=== PATIENT | female | born 1980 | race Caucasian/White ===

== ENCOUNTER 2018-08-03 19:15 | Inpatient (IN) | payer OTHER, MEDICAID ==
[~2018-08-03] VITALS: Ht 180.3 cm; Wt 70.3 kg
[2018-08-03 19:24] VITALS: BP_SYST 124
[2018-08-03] MEDS ORDERED: VITD2000 PO (19:43)
[2018-08-03] MEDS ORDERED: GABA-531 PO (19:43)
[2018-08-03] MEDS ORDERED: LEVE500T8 PO (19:43)
[2018-08-03] MEDS ORDERED: CHOL500051 PO (19:43)
[2018-08-03] MEDS ORDERED: ESCI10TA PO (19:47)
[2018-08-03] MEDS ORDERED: SYN50 PO (19:47)
[2018-08-03] MEDS ORDERED: SIMV20TA6 PO (19:47)
[2018-08-03] MEDS ORDERED: NAPR-688 PO (19:59)
[2018-08-03] MEDS ORDERED: LOM2.5 PO (19:59)
[2018-08-03] MEDS ORDERED: BACL10TA PO (19:59)
[2018-08-03] MEDS ORDERED: ACET-2634 PO (19:59)
[2018-08-03] MEDS ORDERED: MORPHINE 4 MG/ML INJ. SYRINGE IVP ONE ×2 (20:15→22:00)
[2018-08-03 20:33] LABS: BASOPHILS # (AUTO) 0.1 K/uL (0.0-0.2); BASOPHILS % (AUTO) 0.4 % (0.0-2.0); EOSINOPHILS # (AUTO) 0.1 K/uL (0.0-0.4); EOSINOPHILS % (AUTO) 0.4 % (0.0-4.0); HEMATOCRIT 41.6 % (36-48); HEMOGLOBIN 14.1 g/dL (12.0-16.0); LYMPHOCYTES # (AUTO) 1.8 K/uL (1.0-5.5); MEAN CORPUSCULAR HEMOGLOBIN 30 pg (27-31); MEAN CORPUSCULAR HGB CONC 34 % (32-36); MEAN CORPUSCULAR VOLUME 88 fL (79.0-98.0); MONOCYTES # (AUTO) 0.8 K/uL (0.0-1.0); MONOCYTES % (AUTO) 5.7 % (1.7-9.3); NEUTROPHILS % (AUTO) 80.5 % (40.0-70.0); PLATELET COUNT (AUTO) 264 K/uL (130-430); RED BLOOD CELL COUNT(AUTO) 4.73 MIL/uL (4.2-6.2); RED CELL DISTRIBUTION WIDTH 13.4 % (9.0-15.0); WHITE BLOOD COUNT (AUTO) 13.6 K/uL (4.8-10.8)
[2018-08-03 20:40] LABS: CALCIUM 9.1 mg/dL (8.4-11.0); CREATININE 0.69 mg/dL (0.55-1.30); POTASSIUM 3.4 mmol/L (3.5-5.1)
[2018-08-03 20:44] LABS: ALBUMIN 4.1 g/dL (3.4-4.8); TOTAL BILIRUBIN 0.4 mg/dL (0.0-1.0)
[2018-08-04] VITALS (7 sets, daily range): BP systolic 107–133
[2018-08-04] MEDS ORDERED: HYDROmorphone 2 MG/ML VIAL IVP ONE (02:00)
[2018-08-04] MEDS ORDERED: LORazepam 2 MG/ML VIAL IVP ONE (02:00)
[2018-08-04] MEDS ORDERED: ACETAMINOPHEN 325 MG TABLET PO PRN (06:30)
[2018-08-04] MEDS ORDERED: ALBUTEROL SULFATE 0.083% 2.5 MG/3 ML VIAL.NEB INH PRN (06:30)
[2018-08-04] MEDS: NACL 0.9% 1,000 ML IV SCH (06:54)
[2018-08-04] MEDS ORDERED: KCL 20 mEq in 100 mL (PREMIX) 100 ML IV ONE (08:00)
[2018-08-04 08:03] LABS: BASOPHILS % (AUTO) 0.4 % (0.0-2.0); EOSINOPHILS % (AUTO) 0.3 % (0.0-4.0); HEMATOCRIT 38.5 % (36-48); LYMPHOCYTES # (AUTO) 2.2 K/uL (1.0-5.5); LYMPHOCYTES % (AUTO) 24.6 % (20.5-51.5); MEAN CORPUSCULAR HEMOGLOBIN 30 pg (27-31); MEAN CORPUSCULAR HGB CONC 34 % (32-36); MEAN CORPUSCULAR VOLUME 89 fL (79.0-98.0); MONOCYTES # (AUTO) 0.8 K/uL (0.0-1.0); MONOCYTES % (AUTO) 8.6 % (1.7-9.3); NEUTROPHILS % (AUTO) 66.1 % (40.0-70.0); PLATELET COUNT (AUTO) 240 K/uL (130-430); RED BLOOD CELL COUNT(AUTO) 4.33 MIL/uL (4.2-6.2); RED CELL DISTRIBUTION WIDTH 13.4 % (9.0-15.0); WHITE BLOOD COUNT (AUTO) 9.1 K/uL (4.8-10.8)
[2018-08-04 08:15] LABS: CALCIUM 8.7 mg/dL (8.4-11.0); CREATININE 0.59 mg/dL (0.55-1.30); POTASSIUM 3.4 mmol/L (3.5-5.1)
[2018-08-04 08:22] LABS: ALBUMIN 3.5 g/dL (3.4-4.8); TOTAL BILIRUBIN 0.4 mg/dL (0.0-1.0)
[2018-08-04] MEDS ORDERED: POTASSIUM CHLORIDE 20 MEQ in NS 250 ML IV ONE (08:30)
[2018-08-04] MEDS ORDERED: POTASSIUM CHLORIDE 20 MEQ TAB.PRT.SR PO ONE (09:30)
[2018-08-04] MEDS: MORPHINE 4 MG/ML INJ. SYRINGE IVP PRN ×2 (12:00→19:44)
[2018-08-05] MEDS: NACL 0.9% 1,000 ML IV SCH (05:53)
[2018-08-05] MEDS: MORPHINE 4 MG/ML INJ. SYRINGE IVP PRN ×3 (05:54→17:34)
[2018-08-05 06:09] LABS: BASOPHILS % (AUTO) 0.3 % (0.0-2.0); EOSINOPHILS # (AUTO) 0.1 K/uL (0.0-0.4); EOSINOPHILS % (AUTO) 0.7 % (0.0-4.0); HEMOGLOBIN 13.3 g/dL (12.0-16.0); LYMPHOCYTES # (AUTO) 1.2 K/uL (1.0-5.5); MEAN CORPUSCULAR HEMOGLOBIN 31 pg (27-31); MEAN CORPUSCULAR HGB CONC 34 % (32-36); MEAN CORPUSCULAR VOLUME 90 fL (79.0-98.0); MONOCYTES # (AUTO) 0.5 K/uL (0.0-1.0); MONOCYTES % (AUTO) 6.2 % (1.7-9.3); NEUTROPHILS # (AUTO) 6.3 K/uL (1.8-7.7); NEUTROPHILS % (AUTO) 77.8 % (40.0-70.0); PLATELET COUNT (AUTO) 241 K/uL (130-430); RED BLOOD CELL COUNT(AUTO) 4.35 MIL/uL (4.2-6.2); RED CELL DISTRIBUTION WIDTH 13.9 % (9.0-15.0)
[2018-08-05 06:48] LABS: ALBUMIN 3.4 g/dL (3.4-4.8); CALCIUM 8.7 mg/dL (8.4-11.0); CREATININE 0.49 mg/dL (0.55-1.30); POTASSIUM 3.9 mmol/L (3.5-5.1); TOTAL BILIRUBIN 0.6 mg/dL (0.0-1.0)
[2018-08-05 08:14] VITALS: BP_SYST 114
[2018-08-05 11:25] VITALS: BP_SYST 104
[2018-08-05] MEDS ORDERED: ACETAMINOPHEN 500 MG TABLET PO SCH (12:30)
[2018-08-05] MEDS ORDERED: GABAPENTIN 300 MG CAPSULE PO SCH (15:00)
[2018-08-05] MEDS ORDERED: DIPHENOXYLATE HCL/ATROP SULF 2.5 MG TAB PO SCH (15:00)
[2018-08-05 15:48] VITALS: BP_SYST 114
[2018-08-05 18:11] VITALS: BP_SYST 114
[2018-08-05] MEDS ORDERED: DIPHENHYDRAMINE INJ 50 MG/ML VIAL IVP ONE (19:15)
[2018-08-05 19:30] VITALS: BP_SYST 116
[2018-08-05] MEDS ORDERED: SIMVASTATIN 20 MG TABLET PO SCH (21:00)
[2018-08-05] MEDS ORDERED: BACLOFEN 10 MG TABLET PO SCH (21:00)
[2018-08-05] MEDS ORDERED: levETIRAcetam 500 MG TABLET PO SCH (21:00)
[2018-08-06] MEDS ORDERED: LEVOTHYROXINE SODIUM 0.05 MG TABLET PO SCH (07:00)
[2018-08-06] MEDS ORDERED: CITALOPRAM HYDROBROMIDE 20 MG TABLET PO SCH (09:00)
[2018-08-06] MEDS ORDERED: CHOLECALCIFEROL (VITAMIN D3) 2,000 UNIT TABLET PO SCH (09:00)
== END 2018-08-05 20:18 | disposition short-term general hospital (02) | DRG 563 ==
LOC: SED 19:15 → SMU 08-04 00:56
PROVIDERS: ADMIT Internal Medicine; ATTEND Internal Medicine
DX: S82.001A Unspecified fracture of right patella, initial encounter for closed fracture (principal); G80.9 Cerebral palsy, unspecified; E78.5 Hyperlipidemia, unspecified; E03.9 Hypothyroidism, unspecified; E66.9 Obesity, unspecified; F32.9 Major depressive disorder, single episode, unspecified; G89.29 Other chronic pain; W01.0XXA Fall on same level from slipping, tripping and stumbling without subsequent striking against object, initial encounter; Z91.048 Other nonmedicinal substance allergy status; Y93.89 Activity, other specified; Y92.89 Other specified places as the place of occurrence of the external cause; Y99.8 Other external cause status; Z79.899 Other long term (current) drug therapy; Z68.21 Body mass index [BMI] 21.0-21.9, adult
CPT/HCPCS: 36415; 73560-TC; 80053; 85025; 85610-TC; 93005; 94760; 96374; 96375; 96376; 99285; J1170; J1200; J2060; J2270; J3480; J7030; J7050